=== PATIENT | female | born 1975 | race Two or more races ===

== ENCOUNTER → 2016-03-26 | Outpatient (CLI) | payer OTHER ==
--- NOTE | 2016-03-26 18:41 | DX ---
Thoracic Spine Series. 2 views History: Back pain for 3 months without trauma. Findings: Vertebral body heights are well maintained. No fractures are seen. There are no subluxation s. Intervertebral disk spaces are normal. Paravertebral soft tissues demonstrate no significant abnor malities. Impression: Normal thoracic spine series.
== END ==
LOC: BMCIMAGING 16:46
PROVIDERS: ATTEND Internal Medicine
DX: M54.6 Pain in thoracic spine (principal)

== ENCOUNTER → 2018-07-24 | Outpatient (CLI) | payer OTHER | LOC: BMCIMAGING 15:24 ==